=== PATIENT | female | born 1945 | race Hispanic/Latino ===

== ENCOUNTER 2018-10-06 16:55 | Inpatient (IN) | payer MEDICARE, MEDICAID ==
[2018-10-06] MEDS ORDERED: Sodium Chloride 0.9% 1,000 ML IV SCH (17:00)
[2018-10-06 17:20] LABS: BASO # 0.1 K/uL (0.0-0.2); BASO % 1.2 % (0.0-2.0); EOS % 0.2 % (0.0-4.0); HEMOGLOBIN 15.7 g/dL (12.0-16.0); LYMPH % 12.8 % (20.0-40.0); MEAN CORPUSCULAR HEMOGLOBIN 29.2 pg (27.0-31.0); MEAN CORPUSCULAR HGB CONC 33.6 g/dL (33.0-37.0); MEAN PLATELET VOLUME 8.9 fl (7.2-11.7); MONO # 0.7 K/uL (0.0-0.8); MONO % 9.4 % (0.0-10.0); NEUT # 5.7 K/uL (1.8-7.0); NEUT % 76.4 % (50.0-75.0); NRBC % 0.1 % (0.0-0.0); RBC 5.36 Mil/uL (3.80-5.20); WHITE BLOOD COUNT 7.5 K/uL (4.8-10.8)
--- NOTE | 2018-10-06 17:20 | ED PDOC ---
HPI:STROKE - Time Time: 17:15 - Historian Historian: Patient, EMS - Chief Complaint Chief Complaint: Weakness, Difficulty walking - Onset Date: 10/06/18 Onset: This morning - Timing Timing: Currently Symptomatic - Context Context: Home - Notes: Notes:: 72 year old female with a history of CVA and diabetes presents to the ED with left sided weakness beginning this morning. Patient has left sided weakness as a deficit from her last stroke. She lives by herself and was last seen normally at 10 am by family. Patient is alert, oriented and providing history. She states that the weakness began worsening this morning and she was unable to walk, but does not known the exact time of onset. EMS reports blood pressure was 201/94 on their arrival. Patient takes Plavix. PMD: Dr. Tyshawn Sosa NIHSS Stroke Scale - Date/Time Evaluation Performed Date Performed: 10/06/18 Time Performed: 17:15 When Was NIHSS Performed: Code Stroke - How Severe is the Stroke Level of Consciousness: 0=Alert LOC to Questions: 0=Both comments correct LOC to commands: 0=Obeys both correctly Best Gaze: 0=Normal Visual: 0=No visual loss Facial: 2=Partial (lower face paralysis) Motor Arm - Left: 3=No effort against gravity (falls immediately) Motor Arm - Right: 0=No drift Motor Leg - Left: 3=No effort against gravity (falls immediately) Motor Leg - Right: 3=No effort against gravity (falls immediately) Limb Ataxia: 0=Absent Sensory: 0=Normal Best Language: 0=No aphasia Dysarthia: 0=Normal articulation Extinction & Inattention (Neglect): 0=Normal, no object Score: 11 rTPA Inclusion/Exclusion - Refusal of Treatment Patient Refused Treatment: No - Inclusion Criteria for Altepase Patient is 18 years or Older: Yes The Clinical Diagnosis of Ischemic Stroke That is Causing a Potentially Disabling Neurological Deficit: Yes Time of Onset is Well Established to be Less Than 270 Minute Before Treatment Would Begin: No Risk/Benefit Discussed With Patient/Family Member Present: No Past Medical History Reviewed: Historical Data, Nursing Documentation, Vital Signs Vital Signs: Last Vital Signs Temp 99.3 F 10/06/18 16:58 Pulse 107 H 10/06/18 17:11 Resp 20 10/06/18 17:11 BP 163/96 H 10/06/18 17:11 Pulse Ox 96 10/06/18 17:11 - Medical History PMH: CVA, Diabetes - Family History Family History: States: Unknown Family Hx - Home Medications Home Medications: Ambulatory Orders Medication Instructions Recorded Atorvastatin [Lipitor] 20 mg PO DAILY 10/06/18 Clopidogrel [Plavix] 75 mg PO DAILY 10/06/18 Insulin Glargine,Hum.rec.anlog 25 units SUBCUT QPM 10/06/18 [Lantus Solostar] Lisinopril [Zestril] 20 mg PO BID 10/06/18 Meloxicam [Mobic] 7.5 mg PO DAILY 10/06/18 Memantine [Namenda] 10 mg PO BID 10/06/18 MetFORMIN [glucoPHAGE] 1,000 mg PO BID 10/06/18 amLODIPine [Norvasc] 5 mg PO BID 10/06/18 Oseltamivir Cap [Tamiflu Cap] 75 mg PO BID #8 capsule 10/08/18 - Allergies Allergies/Adverse Reactions: Allergies Allergy/AdvReac Type Severity Reaction Status Date / Time No Known Allergies Allergy Verified 10/06/18 16:58 Review of Systems ROS Statement: Except As Marked, All Systems Reviewed And Found Negative Neurological: Positive for: Weakness (left sided weakness) - Laboratory Results Result Diagrams: 10/07/18 10:55 10/07/18 10:55 - ECG O2 Sat by Pulse Oximetry: 96 (RA) Pulse Ox Interpretation: Normal - Core Measure Core Measure Indicators: Code Stroke - Critical Care Total Time (In Min): 60 Medical Decision Making Medical Decision Makin:58 Impression: stroke Initial Plan: --Blood type and screen --Head CT (Code stroke) --EKG --CMP --CBC --Hemoglobin A1C --Lipid panel --Troponin --CBC --PTT --PT --CXR --NS IV 17:[address] FINDINGS: HEMORRHAGE: No intracranial hemorrhage. BRAIN: No definite acute intracranial findings however chronic infarct at the right basal ganglia/external capsule is appreciate superiorly once again and chronic lacune at the left globus pallidus is again noted anteriorly. Otherwise, d iffuse cerebral atrophy chronic microangiopathy are reiterated and remain quite mild in severity. Posterior fossa contents are stable. Midline brain anatomy is normal and there is no mass effect. Atherosclerotic change identified the bilateral cavernous internal carotid artery segments as well as the distal bilateral vertebral arteries. VENTRICLES: Unremarkable. No hydrocephalus. CALVARIUM: Unremarkable. PARANASAL SINUSES: Unremarkable as visualized. No significant inflammatory changes. MASTOID AIR CELLS: Unremarkable as visualized. No inflammatory changes. OTHER FINDINGS: None. IMPRESSION: No acute intracranial findings although age-related degenerative changes are reiterated as well as small infarcts at the right external capsule/superior basal ganglia and left anterior basal ganglia. 17:[address] Coyle who recommended CTA, no medications for blood pressure at this time and to keep the head of the bed at 20 degrees. 17:41 --Rectal temperature is 102.1. Patient will be given Tylenol 650 mg. VBG ordered. Accession No. : [id number] Patient Name / ID : PIEDAD LOZANO / [id number] Exam Date : 10/06/2018 17:27:02 ( Approved ) Study Comment : Sex / Age : F / 72Y Creator : Kenny Nguyễn MD Dictator : Kenny Nguyễn MD Hydraulic Strainer Operator : Solar Sales Ambassador : Kenny Nguyễn MD Approver2 : Report Date : 10/06/2018 17:52:40 My Comment : Date of service: 10/06/2018 PROCEDURE: CT Angiography of the Brain and Neck. HISTORY: Worsening L sided weakness COMPARISON: None available. TECHNIQUE: CT angiography of the head and neck was performed following intravenous contrast administration. Coronal and sagittal maximum intensity projection reformatted images were generated. Contrast Dose: Visipaque 320, 190 cc Radiation dose: Total exam DLP = 420.65 mGy-cm. This CT exam was performed using one or more of the following dose reduction techniques: Automated exposure control, adjustment of the mA and/or kV according to patient size, and/or use of iterative reconstruction technique. FINDINGS: INTERNAL CEREBRAL ARTERIES: Note is made of partially calcified atherosclerosis of the bilateral cavernous internal carotid artery segments without significant stenosis. The skull base, petrous, and supraclinoid segments are bilaterally widely patent. ANTERIOR CEREBRAL ARTERIES: Unremarkable. A1 and A2 segments are widely patent. Smaller distal branches unr emarkable, as visualized. MIDDLE CEREBRAL ARTERIES: Unremarkable. M1 and M2 segments are widely patent. Perisylvian branches grossly symmetric. POSTERIOR CIRCULATION: Basilar Artery: Unremarkable. Distal Vertebral Arteries: Left dominant vertebrobasilar circulation on account of moderate hypoplasia of the distal right vertebral artery. Posterior Cerebral Arteries: Unremarkable. Posterior Inferior Cerebellar Arteries: Unremarkable. ANEURYSM/ VASCULAR MALFORMATIONS: None. OTHER FINDINGS: None. IMPRESSION: Distal right vertebral artery hypoplasia. Mildly atherosclerotic cavernous ICA segments bilaterally. CT angiography of the head and neck otherwise unremarkable. No large vessel occlusion or high-grade stenosis appreciable. 18:00 Dr. Coyle notified of CTA results and elevated temp. States symptoms probably secondary to infection. Recommends empiric Abx, permissive HTN X 24 hours, IVF, ASA 325 mg and MRI. 18:25 Patient is positive for influenza A. Since she failed the swallow screen, unable to administer Tamiflu normally. Will attempt Tamiflu suspension. -------- --------- Scribe Attestation: Documented by Radha Pena acting as a scribe for Pam Hu MD Provider Scribe Attestation: All medical record entries made by the Scribe were at my direction and personally dictated by me. I have reviewed the chart and agree that the record accurately reflects my personal performance of the history, physical exam, medical decision making, and the department course for this patient. I have also personally directed, reviewed, and agree with the discharge instructions and disposition. Disposition - Clinical Impression Clinical Impression: Influenza, SIRS (systemic inflammatory response syndrome) - Patient ED Disposition Is Patient to be Admitted: Yes - Disposition Disposition Time: 18:25 Condition: GUARDED - Pt Status Changed To: Hospital Disposition Of: Inpatient - Admit Certification Admit to Inpatient:: After my assessment, the patient will require hospitalization for at least two midnights. This is because of the severity of symptoms shown, intensity of services needed, and/or the medical risk in this patient being treated as an outpatient. - POA Present On Arrival: None
[2018-10-06] MEDS ORDERED: Iodixanol 320 MG/ML 100 ML BOTTLE IV ONE (17:23)
[2018-10-06] MEDS ORDERED: Sodium Chloride 0.9% 50 ML IV ONE (17:23)
--- NOTE | 2018-10-06 17:24 | CT ---
Date of service: 10/06/2018 PROCEDURE: CT HEAD WITHOUT CONTRAST. HISTORY: code stroke COMPARISON: None available. TECHNIQUE: Axial computed tomography images were obtained through the head/brain without intravenous contrast. Radiation dose: Total exam DLP = 782.77 mGy-cm. This CT exam was performed using one or more of the following dose reduction techniques: Automated exposure control, adjustment of the mA and/or kV according to patient size, and/or use of iterative reconstruction technique. FINDINGS: HEMORRHAGE: No intracranial hemorrhage. BRAIN: No definite acute intracranial findings however chronic infarct at the right basal ganglia/external capsule is appreciate superiorly once again and chronic lacune at the left globus pallidus is again noted anteriorly. Otherwise, diffuse cerebral atrophy chronic microangiopathy are reiterated and remain quite mild in severity. Posterior fossa contents are stable. Midline brain anatomy is normal and there is no mass effect. Atherosclerotic change identified the bilateral cavernous internal carotid artery segments as well as the distal bilateral vertebral arteries. VENTRICLES: Unremarkable. No hydrocephalus. CALVARIUM: Unremarkable. PARANASAL SINUSES: Unremarkable as visualized. No significant inflammatory changes. MASTOID AIR CELLS: Unremarkable as visualized. No inflammatory changes. OTHER FINDINGS: None. IMPRESSION: No acute intracranial findings although age-related degenerative changes are reiterated as well as small infarcts at the right external capsule/superior basal ganglia and left anterior basal ganglia. Findings discussed with Dr. Hu with written down and read back verification 10/06/2018 5:13 p.m..
[2018-10-06 17:25] LABS: INR 1.1; PROTHROMBIN TIME 12.7 Seconds (9.8-13.1)
--- NOTE | 2018-10-06 17:26 | ED PDOC ---
HPI: Neurologic - General Time Seen by Provider: 10/06/18 16:56 Chief Complaint (Nursing): Weakness/Neurological Deficit Chief Complaint (Provider): Weakness/Neurological Deficit Source: patient, EMS - History of Present Illness Timing/Duration: 4-6 hours Associated Symptoms: trouble walking, weakness Allergies/Adverse Reactions: Allergies No Known Allergies Allergy (Verified 10/06/18 16:58) Additional Complaint(s): 72 year old female with a history of CVA and diabetes presents to the ED with left sided weakness beginning this morning. Patient has left sided weakness as a deficit from her last stroke. She lives by herself and was last seen normally at 10 am by family. Patient is alert, oriented and providing history. She states that the weakness began worsening this morning and she was unable to walk, but does not known the exact time of onset. Patient takes Plavix. PMD: Dr. Tyshawn Sosa Past Medical History Reviewed: Historical Data, Nursing Documentation, Vital Signs Vital Signs: Last Vital Signs Temp 99.3 F 10/06/18 16:58 Pulse 107 H 10/06/18 17:11 Resp 20 10/06/18 17:11 BP 163/96 H 10/06/18 17:11 Pulse Ox 96 10/06/18 17:11 - Medical History PMH: CVA (left sided weakness as a deficit), Diabetes - Family History Family History: States: Unknown Family Hx - Allergies Allergies/Adverse Reactions: Allergies Allergy/AdvReac Type Severity Reaction Status Date / Time No Known Allergies Allergy Verified 10/06/18 16:58 Review of Systems ROS Statement: Except As Marked, All Systems Reviewed And Found Negative Neurological: Positive for: Weakness (left sided weakness) - ECG O2 Sat by Pulse Oximetry: 96 Disposition - Disposition Forms: [employer] (Malagasy)
[2018-10-06 17:27] LABS: PARTIAL THROMBOPLASTIN TIME 31.5 Seconds (25.6-37.1)
[2018-10-06 17:30] LABS: ALB/GLOB RATIO 1.2 (1.0-2.1); ALBUMIN 4.1 g/dL (3.5-5.0); ALT/SGPT 20 U/L (9-52); AST/SGOT 19 U/L (14-36); BLOOD UREA NITROGEN 12 mg/dl (7-17); CALCIUM 9.4 mg/dL (8.4-10.2); GFR NON-AFRICAN AMERICAN > 60; HDL CHOLESTEROL 46 MG/DL (30-70)
[2018-10-06 17:41] LABS: LDL CHOLESTEROL 91 mg/dL (0-129)
--- NOTE | 2018-10-06 17:56 | CT ---
Date of service: 10/06/2018 PROCEDURE: CT Angiography of the Brain and Neck. HISTORY: Worsening L sided weakness COMPARISON: None available. TECHNIQUE: CT angiography of the head and neck was performed following intravenous contrast administration. Coronal and sagittal maximum intensity projection reformatted images were generated. Contrast Dose: Visipaque 320, 190 cc Radiation dose: Total exam DLP = 420.65 mGy-cm. This CT exam was performed using one or more of the following dose reduction techniques: Automated exposure control, adjustment of the mA and/or kV according to patient size, and/or use of iterative reconstruction technique. FINDINGS: INTERNAL CEREBRAL ARTERIES: Note is made of partially calcified atherosclerosis of the bilateral cavernous internal carotid artery segments without significant stenosis. The skull base, petrous, and supraclinoid segments are bilaterally widely patent. ANTERIOR CEREBRAL ARTERIES: Unremarkable. A1 and A2 segments are widely patent. Smaller distal branches unremarkable, as visualized. MIDDLE CEREBRAL ARTERIES: Unremarkable. M1 and M2 segments are widely patent. Perisylvian branches grossly symmetric. POSTERIOR CIRCULATION: Basilar Artery: Unremarkable. Distal Vertebral Arteries: Left dominant vertebrobasilar circulation on account of moderate hypoplasia of the distal right vertebral artery. Posterior Cerebral Arteries: Unremarkable. Posterior Inferior Cerebellar Arteries: Unremarkable. ANEURYSM/ VASCULAR MALFORMATIONS: None. OTHER FINDINGS: None. IMPRESSION: Distal right vertebral artery hypoplasia. Mildly atherosclerotic cavernous ICA segments bilaterally. CT angiography of the head and neck otherwise unremarkable. No large vessel occlusion or high-grade stenosis appreciable.
[2018-10-06 17:58] LABS: VENOUS BLOOD GAS BASE EXCESS 2.9 mmol/L (0.0-2.0); VENOUS BLOOD GAS PCO2 43 mmHg (40-60); VENOUS BLOOD GAS PO2 42 mm/Hg (30-55); VENOUS BLOOD PH 7.42 (7.32-7.43)
[2018-10-06 18:21] LABS: SQUAMOUS EPITHIAL 1 /hpf (0-5); URINE BACTERIA RARE (<OCC); URINE BILIRUBIN NEGATIVE (NEGATIVE); URINE BLOOD NEGATIVE (NEGATIVE); URINE CLARITY CLEAR (Clear); URINE COLOR YELLOW (YELLOW); URINE GLUCOSE (UA) 150 mg/dL (NEGATIVE); URINE LEUKOCYTE ESTERASE NEG Leu/uL (Negative); URINE PROTEIN 30 mg/dL (NEGATIVE); URINE UROBILINOGEN 0.2-1.0 mg/dL (0.2-1.0)
[2018-10-06] MEDS ORDERED: Oseltamivir 6 MG/ML PO STA (18:33)
[2018-10-06] MEDS: Dextrose 5%/Lactated Ringer's 1,000 ML IV SCH (21:50)
[2018-10-07] MEDS ORDERED: Chlorhexidine Gluconate 1 APPL/PKT TP ONE (00:30)
--- NOTE | 2018-10-07 07:27 | CARD ---
APPROVED REPORT Date of service: 10/06/2018 EKG Measurement Heart [id number] <Conclusion> Sinus tachycardia with premature atrial complexes Otherwise normal ECG
[2018-10-07 11:02] LABS: HEMOGLOBIN 13.3 g/dL (12.0-16.0); MEAN CORPUSCULAR HEMOGLOBIN 29.3 pg (27.0-31.0); MEAN CORPUSCULAR HGB CONC 32.9 g/dL (33.0-37.0); RBC 4.56 Mil/uL (3.80-5.20); RED CELL DISTRIBUTION WIDTH 13.8 % (11.5-14.5); WHITE BLOOD COUNT 3.6 K/uL (4.8-10.8)
[2018-10-07 11:17] LABS: ALB/GLOB RATIO 1.1 (1.0-2.1); ALBUMIN 3.3 g/dL (3.5-5.0); ALT/SGPT 22 U/L (9-52); AST/SGOT 21 U/L (14-36); BLOOD UREA NITROGEN 13 mg/dl (7-17); CALCIUM 8.3 mg/dL (8.4-10.2); GFR NON-AFRICAN AMERICAN > 60
--- NOTE | 2018-10-07 12:08 | RAD ---
Date of service: 10/06/2018 HISTORY: Code Stroke COMPARISON: 07/19/2015. FINDINGS: LUNGS: The lungs are well inflated and clear. PLEURA: No pleural effusions or pneumothorax. CARDIOVASCULAR: The heart is normal in size. There are aortic atherosclerotic calcifications present. OSSEOUS STRUCTURES: Within normal limits for the patient's age. VISUALIZED UPPER ABDOMEN: Normal. OTHER FINDINGS: None. IMPRESSION: No active pulmonary disease.
[2018-10-07] MEDS: Pantoprazole 40 mg EC Tab PO SCH (12:45)
[2018-10-07 17:07] VITALS: BMI 29.2
[2018-10-07] MEDS: Dextrose 5%/Lactated Ringer's 1,000 ML IV SCH (18:03)
[2018-10-07] MEDS: Enoxaparin 40 mg Syringe SC SCH (18:07)
--- NOTE | 2018-10-07 21:14 | CP.PCM.CON ---
History of Present Illness - History of Present Illness History of Present Illness: Neurology consult called for Alisa Liriano, a 72 year old woman who had a spell of left sided weakness, that is a chronic issue from her last stroke. As per chart and Dr. Hu: She had worsening left sided weakness superimposed on old weakness from right sided stroke. She was found to have the flu and was not considered a TPA candidate. ROS: headache, nausea. PMH/PSH FH/SH All: Past Patient History - Past Medical History & Family History Past Medical History?: Yes - Past Social History Smoking Status: Never Smoked - CARDIAC Hx Cardiac Disorders: Yes Hx Hypercholesterolemia: Yes Hx Hypertension: Yes - PULMONARY Hx Respiratory Disorders: No - NEUROLOGICAL Hx Neurological Disorder: Yes HX Cerebrovascular Accident: Yes (left sided weakness) - HEENT Hx HEENT Problems: Yes Hx Difficulty Chewing: Yes (dentures) - RENAL Hx Chronic Kidney Disease: No - ENDOCRINE/METABOLIC Hx Endocrine Disorders: Yes Hx Diabetes Mellitus Type 2: Yes - HEMATOLOGICAL/ONCOLOGICAL Hx Blood Disorders: No Hx AIDS: No Hx Human Immunodeficiency Virus (HIV): No - INTEGUMENTARY Hx Dermatological Problems: No - MUSCULOSKELETAL/RHEUMATOLOGICAL Hx Musculoskeletal Disorders: No Hx Falls: No - GASTROINTESTINAL Hx Gastrointestinal Disorders: No - GENITOURINARY/GYNECOLOGICAL Hx Genitourinary Disorders: Yes Hx Incontinence: Yes - PSYCHIATRIC Hx Psychophysiologic Disorder: No Hx Substance Use: No - SURGICAL HISTORY Hx Surgeries: No - ANESTHESIA Hx Anesthesia: No Hx Anesthesia Reactions: No Meds Allergies/Adverse Reactions: Allergies Allergy/AdvReac Type Severity Reaction Status Date / Time No Known Allergies Allergy Verified 10/06/18 16:58 - Medications Medications: Current Medications Acetaminophen (Tylenol 650 Mg Supp) 650 mg AK ONCE PRN PRN Reason: Fever >100.4 F Last Admin: 10/07/18 00:33 Dose: 650 mg Acetaminophen (Tylenol 650 Mg Supp) 650 mg AK Q4 PRN PRN Reason: Fever >100.4 F Acetaminophen (Tylenol 325mg Tab) 650 mg PO Q4 PRN PRN Reason: Fever >100.4 F Last Admin: 10/07/18 12:44 Dose: 650 mg Amlodipine Besylate (Norvasc) 5 mg PO BID [facility] Last Admin: 10/07/18 18:08 Dose: 5 mg Atorvastatin Calcium (Lipitor) 20 mg PO DAILY [facility] Last Admin: 10/07/18 18:06 Dose: 20 mg Clopidogrel Bisulfate (Plavix) 75 mg PO DAILY [facility] Last Admin: 10/07/18 12:44 Dose: 75 mg Enoxaparin Sodium (Lovenox) 40 mg SC DAILY [facility]; Protocol Last Admin: 10/07/18 18:07 Dose: 40 mg Ceftriaxone Sodium 1 gm/ (Sodium Chloride) 100 mls @ 100 mls/hr IVPB DAILY [facility]; Protocol Last Admin: 10/07/18 18:08 Dose: 100 mls/hr Lisinopril (Zestril) 20 mg PO BID [facility] Last Admin: 10/07/18 18:10 Dose: 20 mg Memantine (Namenda) 10 mg PO BID [facility] Last Admin: 10/07/18 18:07 Dose: 10 mg Metformin HCl (Glucophage) 1,000 mg PO BID [facility] Last Admin: 10/07/18 18:06 Dose: 1,000 mg Oseltamivir Phosphate (Tamiflu Cap) 75 mg PO BID [facility]; Protocol Last Admin: 10/07/18 18:10 Dose: 75 mg Pantoprazole Sodium (Protonix Ec Tab) 40 mg PO DAILY [facility] Last Admin: 10/07/18 12:45 Dose: 40 mg Results - Vital Signs Recent Vital Signs: Last Vital Signs Temp 98.8 F 10/07/18 20:11 Pulse 63 10/07/18 20:11 Resp 17 10/07/18 20:11 BP 150/78 10/07/18 20:11 Pulse Ox 96 10/07/18 20:11 - Labs Result Diagrams: 10/07/18 10:55 10/07/18 10:55 Labs: Laboratory Results - last 24 hr 10/07/18 10/07/18 10/07/18 05:28 10:53 10:55 WBC RBC Hgb Hct MCV MCH MCHC RDW Plt Count Sodium Potassium Chloride Carbon Dioxide Anion Gap BUN Creatinine Est GFR ( Amer) Est GFR (Non-Af Amer) POC Glucose (mg/dL) 217 H 209 H Random Glucose Calcium Phosphorus Magnesium Total Bilirubin AST ALT Alkaline Phosphatase Total Protein Albumin Globulin Albumin/Globulin Ratio Blood Type Confirm O POSITIVE 10/07/18 10/07/18 10/07/18 10:55 10:55 15:40 WBC 3.6 L D RBC 4.56 Hgb 13.3 D Hct 40.5 MCV 89.0 D MCH 29.3 MCHC 32.9 L RDW 13.8 Plt Count 184 Sodium 136 Potassium 3.8 Chloride 101 Carbon Dioxide 29 Anion Gap 10 BUN 13 Creatinine 0.8 Est GFR ( Amer) > 60 Est GFR (Non-Af Amer) > 60 POC Glucose (mg/dL) 239 H Random Glucose 225 H Calcium 8.3 L Phosphorus 3.6 Magnesium 1.6 Total Bilirubin 0.2 AST 21 ALT 22 Alkaline Phosphatase 102 Total Protein 6.2 L Albumin 3.3 L Globulin 2.9 Albumin/Globulin Ratio 1.1 Blood Type Confirm
[2018-10-08 05:26] VITALS: RESP 18
[2018-10-08] MEDS: Enoxaparin 40 mg Syringe SC SCH (09:14)
[2018-10-08] MEDS: Pantoprazole 40 mg EC Tab PO SCH (09:16)
--- NOTE | 2018-10-08 11:41 | MRI ---
Date of service: 10/07/2018 PROCEDURE: MRI BRAIN WITHOUT CONTRAST HISTORY: Acute on chronic left-sided weakness COMPARISON: Comparison made with prior CT scan and CTA of the brain both dated 10/06/19 19.. TECHNIQUE: Multiplanar, multisequence MR images of the brain were obtained without intravenous contrast enhancement. FINDINGS: HEMORRHAGE: No acute parenchymal, subarachnoid or extra-axial hemorrhage. There is however a small focal area of hemosiderin deposition right posterior superior basal ganglia/coronal radiata junction. DWI: No evidence of an acute or early subacute infarction seen on diffusion imaging. BRAIN PARENCHYMA: Mild diffuse/confluent chronic prolonged T2 signal changes seen extending peripherally into the deep white matter both cerebral hemispheres.. Findings most likely represent chronic sequela of small vessel disease. Multiple more discrete focal areas of increased T2 signal also seen scattered about the basal nuclei as well as deep and subcortical white matter and to a lesser degree brainstem. Note however that there is 1 discrete and prominent rounded lesion in the right posterior superior periventricular white matter at the level of the posterior frontoparietal watershed zone that mom probably represents chronic ischemic focus as well however differential diagnosis would also include sequela atypical presentation of a post infectious/inflammatory etiologies however possibility of atypical presentation of a demyelinating disease process not excluded.. Mild mild generalized volume loss. VENTRICLES: No obstructive hydrocephalus. CRANIUM: No acute calvarial abnormalities are identified.. ORBITS: Orbits and contents grossly unremarkable... PARANASAL SINUSES/MASTOIDS: Minor mucosal thickening seen in the ethmoid air complex extension superiorly into the inferior aspect of the frontal sinus more so on the left side. There also appears to be some minimal mucosal thickening floor left maxillary antrum. VASCULAR SYSTEM: Visualized major vascular flow voids at skull base patent.. OTHER FINDINGS: None. IMPRESSION: No evidence of acute intracranial hemorrhage however there is a small focal area of hemosiderin deposition in the right posterior superior basal ganglia/coronal radiata junction. No evidence of acute infarct. There are chronic appearing white matter, basal nuclei and brainstem changes likely representing chronic sequela of small vessel disease. One discrete prominent rounded lesion in the right posterior periventricular white matter also noted which may represent an old infarct as well however see above discussion for differential diagnostic considerations.
[2018-10-08 11:43] VITALS: BP 146/81; PULSE 76; TEMP 98.8
--- NOTE | 2018-10-08 11:49 | CP.PCM.PN ---
Subjective - Date & Time of Evaluation Date of Evaluation: 10/08/18 Time of Evaluation: 11:30 - Subjective Subjective: Neuro Follow-Up Note: Mrs. Liriano was evaluated this morning in bed. Family present at bedside. Pt states that she feels better today; denies weakness or fatigue. + mild generalized body aches. Denies h/a, dizziness, visual changes, chest pain, palpitations, sob, abd pain, n/v/d. Objective - Vital Signs/Intake and Output Vital Signs (last 24 hours): Temp Pulse Resp BP Pulse Ox 98.8 F 76 18 146/81 93 L 10/08/18 11:42 10/08/18 11:42 10/08/18 11:42 10/08/18 11:42 10/08/18 11:42 - Medications Medications: Current Medications Acetaminophen (Tylenol 650 Mg Supp) 650 mg HI ONCE PRN PRN Reason: Fever >100.4 F Last Admin: 10/07/18 00:33 Dose: 650 mg Acetaminophen (Tylenol 650 Mg Supp) 650 mg HI Q4 PRN PRN Reason: Fever >100.4 F Acetaminophen (Tylenol 325mg Tab) 650 mg PO Q4 PRN PRN Reason: Fever >100.4 F Last Admin: 10/07/18 12:44 Dose: 650 mg Amlodipine Besylate (Norvasc) 5 mg PO BID [facility] Last Admin: 10/08/18 09:15 Dose: 5 mg Atorvastatin Calcium (Lipitor) 20 mg PO DAILY [facility] Last Admin: 10/08/18 09:14 Dose: 20 mg Clopidogrel Bisulfate (Plavix) 75 mg PO DAILY [facility] Last Admin: 10/08/18 09:16 Dose: 75 mg Enoxaparin Sodium (Lovenox) 40 mg SC DAILY [facility]; Protocol Last Admin: 10/08/18 09:14 Dose: 40 mg Ceftriaxone Sodium 1 gm/ (Sodium Chloride) 100 mls @ 100 mls/hr IVPB DAILY [facility]; Protocol Last Admin: 10/08/18 09:16 Dose: 100 mls/hr Lisinopril (Zestril) 20 mg PO BID [facility] Last Admin: 10/08/18 09:17 Dose: 20 mg Memantine (Namenda) 10 mg PO BID [facility] Last Admin: 10/08/18 09:15 Dose: 10 mg Metformin HCl (Glucophage) 1,000 mg PO BID [facility] Last Admin: 10/08/18 09:14 Dose: 1,000 mg Oseltamivir Phosphate (Tamiflu Cap) 75 mg PO BID [facility]; Protocol Last Admin: 10/08/18 09:17 Dose: 75 mg Pantoprazole Sodium (Protonix Ec Tab) 40 mg PO DAILY [facility] Last Admin: 10/08/18 09:16 Dose: 40 mg - Labs Labs: 10/07/18 10:55 10/07/18 10:55 PT 12.7 Seconds (9.8-13.1) 10/06/18 17:15 INR 1.1 10/06/18 17:15 APTT 31.5 Seconds (25.6-37.1) 10/06/18 17:15 - Constitutional Appears: Well, Non-toxic, No Acute Distress - Head Exam Head Exam: ATRAUMATIC, NORMAL INSPECTION, NORMOCEPHALIC - Eye Exam Eye Exam: EOMI, Normal appearance, PERRL Pupil Exam: NORMAL ACCOMODATION, PERRL - ENT Exam ENT Exam: Mucous Membranes Moist - Neck Exam Neck Exam: Full ROM, Normal Inspection - Respiratory Exam Respiratory Exam: NORMAL BREATHING PATTERN - GI/Abdominal Exam GI & Abdominal Exam: Soft - Extremities Exam Extremities Exam: absent: Calf Tenderness, Full ROM, Pedal Edema Additional comments: 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 - Back Exam Back Exam: Full ROM - Neurological Exam Neurological Exam: Alert, Awake, CN II-XII Intact, Oriented x3, Reflexes Normal Neuro motor strength exam: Left Upper Extremity: 3, Right Upper Extremity: 4, Left Lower Extremity: 3, Right Lower Extremity: 4 Additional comments: speech clear, fluid no facial asymmetry + left sided residual weakness from old cva---at baseline today FROM RUE and RLE sensation intact b/l no tremors - Psychiatric Exam Psychiatric exam: Normal Affect, Normal Mood - Skin Skin Exam: Normal Color Assessment and Plan (1) Weakness Assessment & Plan: -Likely 2/2 influenza. Mrs. Liriano is at her baseline today. -Continue treatment and management of influenza per primary. -CT and CTA reviewed -Pending Brain MRI results---if negative for acute infarct and acute hemorrhage, pt may be d/c home. -Continue Plavix and statin to prevent secondary stroke. -Notify neuro is MRI is abnormal. If not, reconsult prn. Thank you for allowing us to participate in this pt's care. Case discussed with Dr. Aguirre Status: Acute
[2018-10-09 17:09] VITALS: O2SAT 96
--- NOTE | 2018-10-13 22:46 | CP.PCM.HP ---
History of Present Illness - History of Present Illness History of Present Illness: This is a [age] y/o female with hx of CVA and leg weakness form CVA was noticed to have become more weak and weakness seem to have worsened . She apparently did not feel well in the last few days Had no fever but had severe body malaise. She was brought to ER were a code stroke was called. She was noted to have " dysphagia " prob secondary to gen debility. She was noted to have Infuenza. Has a hx of CVA HTN DM 2 hyperlipidemia Present on Admission - Present on Admission Any Indicators Present on Admission: No History of DVT/PE: No History of Uncontrolled Diabetes: No Urinary Catheter: No Decubitus Ulcer Present: No Past Patient History - Past Medical History & Family History Past Medical History?: Yes - Past Social History Smoking Status: Never Smoked - CARDIAC Hx Cardiac Disorders: Yes Hx Hypercholesterolemia: Yes Hx Hypertension: Yes - PULMONARY Hx Respiratory Disorders: No - NEUROLOGICAL Hx Neurological Disorder: Yes HX Cerebrovascular Accident: Yes (left sided weakness) - HEENT Hx HEENT Problems: Yes Hx Difficulty Chewing: Yes (dentures) - RENAL Hx Chronic Kidney Disease: No - ENDOCRINE/METABOLIC Hx Endocrine Disorders: Yes Hx Diabetes Mellitus Type 2: Yes - HEMATOLOGICAL/ONCOLOGICAL Hx Blood Disorders: No Hx AIDS: No Hx Human Immunodeficiency Virus (HIV): No - INTEGUMENTARY Hx Dermatological Problems: No - MUSCULOSKELETAL/RHEUMATOLOGICAL Hx Musculoskeletal Disorders: No Hx Falls: No - GASTROINTESTINAL Hx Gastrointestinal Disorders: No - GENITOURINARY/GYNECOLOGICAL Hx Genitourinary Disorders: Yes Hx Incontinence: Yes - PSYCHIATRIC Hx Psychophysiologic Disorder: No Hx Substance Use: No - SURGICAL HISTORY Hx Surgeries: No - ANESTHESIA Hx Anesthesia: No Hx Anesthesia Reactions: No Meds Home Medications: Home Medication List Medication Instructions Recorded Confirmed Type Oseltamivir Cap [Tamiflu Cap] 75 mg PO BID #8 capsule 10/08/18 Rx Allergies/Adverse Reactions: Allergies Allergy/AdvReac Type Severity Reaction Status Date / Time No Known Allergies Allergy Verified 10/06/18 16:58 Physical Exam - Head Exam Head Exam: NORMAL INSPECTION - Eye Exam Eye Exam: Normal appearance - Respiratory Exam Respiratory Exam: Clear to Auscultation Bilateral - Cardiovascular Exam Cardiovascular Exam: REGULAR RHYTHM - GI/Abdominal Exam GI & Abdominal Exam: Normal Bowel Sounds - Neurological Exam Neurological exam: CN II-XII Intact, Normal Gait - Skin Skin Exam: Dry Results - Vital Signs Recent Vital Signs: Last Vital Signs Temp 98.8 F 10/08/18 11:42 Pulse 76 10/08/18 11:42 Resp 18 10/08/18 11:42 BP 146/81 10/08/18 11:42 Pulse Ox 96 10/09/18 17:09 - Labs Result Diagrams: 10/07/18 10:55 10/07/18 10:55 Assessment & Plan (1) SIRS (systemic inflammatory response syndrome) Status: Acute (2) Influenza Status: Acute (3) Hypertension Status: Acute (4) Diabetes mellitus type 2 in nonobese Status: Acute (5) Debility Status: Acute - Assessment and Plan (Free Text) Plan: hydrate repat dysphagia eval advance diet if dysphagia eval is unremarkabvle. start PT
--- NOTE | 2018-10-13 22:53 | CP.PCM.DIS ---
Provider - Provider Date of Admission: 10/06/18 18:25 Attending physician: Art Chen MD Consults: 10/06/18 20:40 Neurology Consult Stat Comment: Consulting Provider: Jose Angel Coyle Consulting Physician: Jose Angel Coyle Reason for Consult: Possible stroke 10/07/18 03:01 Pastoral Care Referral Routine Comment: Physician Instructions: Reason For Exam: New admission Social Work Referral Routine Comment: Lives alone Physician Instructions: Reason For Exam: Lives alone Time Spent in preparation of Discharge (in minutes): 30 Diagnosis - Discharge Diagnosis (1) SIRS (systemic inflammatory response syndrome) Status: Acute (2) Influenza Status: Acute (3) Hypertension Status: Acute (4) Diabetes mellitus type 2 in nonobese Status: Acute (5) Debility Status: Acute Hospital Course - Lab Results Lab Results: Micro Results 10/07/18 10:55 Blood Blood Culture - Final NO GROWTH AFTER 5 DAYS 10/07/18 10:55 Blood Gram Stain - Final TEST NOT PERFORMED 10/06/18 18:10 Blood-Venous Blood Culture - Final NO GROWTH AFTER 5 DAYS 10/06/18 18:10 Blood-Venous Gram Stain - Final TEST NOT PERFORMED 10/06/18 17:55 Blood-Venous Blood Culture - Final NO GROWTH AFTER 5 DAYS 10/06/18 17:55 Blood-Venous Gram Stain - Final TEST NOT PERFORMED 10/06/18 18:09 Urine,Catheterized Urine Culture - Final No Growth (<1,000 CFU/ML) Most Recent Lab Values WBC 3.6 K/uL (4.8-10.8) L D 10/07/18 10:55 RBC 4.56 Mil/uL (3.80-5.20) 10/07/18 10:55 Hgb 13.3 g/dL (12.0-16.0) D 10/07/18 10:55 Hct 40.5 % (34.0-47.0) 10/07/18 10:55 MCV 89.0 fl (81.0-99.0) D 10/07/18 10:55 MCH 29.3 pg (27.0-31.0) 10/07/18 10:55 MCHC 32.9 g/dL (33.0-37.0) L 10/07/18 10:55 RDW 13.8 % (11.5-14.5) 10/07/18 10:55 Plt Count 184 K/uL (130-400) 10/07/18 10:55 MPV 8.9 fl (7.2-11.7) 10/06/18 17:15 Neut % (Auto) 76.4 % (50.0-75.0) H 10/06/18 17:15 Lymph % (Auto) 12.8 % (20.0-40.0) L 10/06/18 17:15 [place] % (Auto) 9.4 % (0.0-10.0) 10/06/18 17:15 Eos % (Auto) 0.2 % (0.0-4.0) 10/06/18 17:15 Baso % (Auto) 1.2 % (0.0-2.0) 10/06/18 17:15 Neut # (Auto) 5.7 K/uL (1.8-7.0) 10/06/18 17:15 Lymph # (Auto) 1.0 K/uL (1.0-4.3) 10/06/18 17:15 [place] # (Auto) 0.7 K/uL (0.0-0.8) 10/06/18 17:15 Eos # (Auto) 0.0 K/uL (0.0-0.7) 10/06/18 17:15 Baso # (Auto) 0.1 K/uL (0.0-0.2) 10/06/18 17:15 PT 12.7 Seconds (9.8-13.1) 10/06/18 17:15 INR 1.1 10/06/18 17:15 APTT 31.5 Seconds (25.6-37.1) 10/06/18 17:15 pO2 42 mm/Hg (30-55) 10/06/18 17:53 VBG pH 7.42 (7.32-7.43) 10/06/18 17:53 VBG pCO2 43 mmHg (40-60) 10/06/18 17:53 VBG HCO3 26.7 mmol/L 10/06/18 17:53 VBG Total CO2 29.2 mmol/L (22-28) H 10/06/18 17:53 VBG O2 Sat (Calc) 83.4 % (40-65) H 10/06/18 17:53 VBG Base Excess 2.9 mmol/L (0.0-2.0) H 10/06/18 17:53 VBG Potassium 3.7 mmol/L (3.6-5.2) 10/06/18 17:53 Sodium 131.0 mmol/L (132-148) L 10/06/18 17:53 Chloride 101.0 mmol/L (98-107) 10/06/18 17:53 Glucose 178 mg/dL (65-105) H 10/06/18 17:53 Lactate 1.8 mmol/L (0.7-2.1) 10/06/18 17:53 FiO2 21.0 % 10/06/18 17:53 Sodium 136 mmol/l (132-148) 10/07/18 10:55 Potassium 3.8 MMOL/L (3.6-5.0) 10/07/18 10:55 Chloride 101 mmol/L (98-107) 10/07/18 10:55 Carbon Dioxide 29 mmol/L (22-30) 10/07/18 10:55 Anion Gap 10 (10-20) 10/07/18 10:55 BUN 13 mg/dl (7-17) 10/07/18 10:55 Creatinine 0.8 mg/dl (0.7-1.2) 10/07/18 10:55 Est GFR ( Amer) > 60 10/07/18 10:55 Est GFR (Non-Af Amer) > 60 10/07/18 10:55 POC Glucose (mg/dL) 241 mg/dL (65-110) H 10/08/18 10:39 Random Glucose 225 mg/dL (65-105) H 10/07/18 10:55 Hemoglobin A1c 9.1 % (4.2-6.5) H 10/06/18 18:25 Calcium 8.3 mg/dL (8.4-10.2) L 10/07/18 10:55 Phosphorus 3.6 mg/dl (2.5-4.5) 10/07/18 10:55 Magnesium 1.6 MG/DL (1.6-2.3) 10/07/18 10:55 Total Bilirubin 0.2 mg/dl (0.2-1.3) 10/07/18 10:55 AST 21 U/L (14-36) 10/07/18 10:55 ALT 22 U/L (9-52) 10/07/18 10:55 Alkaline Phosphatase 102 U/L (38-126) 10/07/18 10:55 Troponin I 0.0120 ng/mL (0.00-0.120) 10/06/18 17:15 Total Protein 6.2 G/DL (6.3-8.2) L 10/07/18 10:55 Albumin 3.3 g/dL (3.5-5.0) L 10/07/18 10:55 Globulin 2.9 gm/dL (2.2-3.9) 10/07/18 10:55 Albumin/Globulin Ratio 1.1 (1.0-2.1) 10/07/18 10:55 Triglycerides 135 mg/DL (0-149) D 10/06/18 17:15 Cholesterol 156 mg/dL (0-199) 10/06/18 17:15 LDL Cholesterol Direct 91 mg/dL (0-129) 10/06/18 17:15 HDL Cholesterol 46 MG/DL (30-70) 10/06/18 17:15 Venous Blood Potassium 3.7 mmol/L (3.6-5.2) 10/06/18 17:53 Urine Color Yellow (YELLOW) 10/06/18 18:09 Urine Clarity Clear (Clear) 10/06/18 18:09 Urine pH 5.0 (5.0-8.0) 10/06/18 18:09 Ur Specific [place] > 1.060 (1.003-1.030) H 10/06/18 18:09 Urine Protein 30 mg/dL (NEGATIVE) 10/06/18 18:09 Urine Glucose (UA) 150 mg/dL (NEGATIVE) 10/06/18 18:09 Urine Ketones Trace mg/dL (NEGATIVE) 10/06/18 18:09 Urine Blood Negative (NEGATIVE) 10/06/18 18:09 Urine Nitrate Negative (NEGATIVE) 10/06/18 18:09 Urine Bilirubin Negative (NEGATIVE) 10/06/18 18:09 Urine Urobilinogen 0.2-1.0 mg/dL (0.2-1.0) 10/06/18 18:09 Ur Leukocyte Esterase Neg [place]/uL (Negative) 01/13/19 18:09 Urine RBC (Auto) 3 /hpf (0-3) 10/06/18 18:09 Urine Microscopic WBC 1 /hpf (0-5) 10/06/18 18:09 Ur Squamous Epith Cells 1 /hpf (0-5) 10/06/18 18:09 Urine Bacteria Rare (<OCC) 10/06/18 18:09 Influenza Typ A,B (EIA) Pos for influenza a (NEGATIVE) H 10/06/18 17:55 Blood Type O POSITIVE 10/06/18 17:15 Blood Type Confirm O POSITIVE 10/07/18 10:55 Antibody Screen Negative 10/06/18 17:15 BBK History Checked No verified bt 10/06/18 17:15 - Hospital Course Hospital Course: This is a 74 y/o female who presented to ER with gen weakness and debility and possible dyspahagia. She had a code strioke at the ER but she was also noted to havve positive for Influenxza. A repeat dysphagia eval was unremarkable She rem ained well and responded very well to hydration and analgesics. She was starte don diet and was advanc She was started on Tamiflu and did very well She was discharged in stable condition on the 2nd day of hospitalization. Discharge Exam - Head Exam Head Exam: NORMAL INSPECTION - Eye Exam Eye Exam: Normal appearance - Respiratory Exam Respiratory Exam: Clear to PA & Lateral - Cardiovascular Exam Cardiovascular Exam: REGULAR RHYTHM - GI/Abdominal Exam GI & Abdominal Exam: Normal Bowel Sounds - Neurological Exam Neurological exam: CN II-XII Intact - Psychiatric Exam Psychiatric exam: Normal Mood Discharge Plan - Discharge Medications Prescriptions: Oseltamivir Cap [Tamiflu Cap] 75 mg PO BID #8 capsule - Follow Up Plan Condition: GUARDED Disposition: HOME/ ROUTINE Instructions: Flu, Adult (DC), Generalized Weakness (DC) Additional Instructions: por favor celena wilder con el doctor zonia en 1 semana Referrals: Tyshawn Sosa MD [Family Provider] - Art Chen MD [Staff Provider] - Edson Aguirre MD [Medical Doctor] -
--- NOTE | 2018-10-29 12:18 | PQF ---
PROVIDER RESPONSE TEXT: SIRS likely secondary to flu (+ influenza A on admission) REVIEWER QUERY TEXT: SIRS Underlying Cause Systemic Inflammatory Response Syndrome (SIRS) is documented in the Medical Record. Please specify th e underlying cause (includes suspected or probable) Such as: -- Infectious cause / process/ PLEASE SPECIFY THE CAUSE? - With organ dysfunction -- Non-infectious cause / process/ PLEASE SPECIFY THE CAUSE? - Without organ dysfunction - With organ dysfunction -- Other, please specify The patient's Clinical Indicators include: XXXX Query created by: Amie Lancaster on 10/21/2018 2:16 PM Electronically signed by: Art Chen MD 10/29/2018 12:15 PM
== END 2018-10-08 14:14 | disposition home or self-care (01) | DRG 194 ==
LOC: H.ER 16:55 → H.ERHOLD 18:25 → H.TEL 22:58
PROVIDERS: ADMIT Family Medicine; ATTEND Family Medicine
DX: J10.1 Influenza due to other identified influenza virus with other respiratory manifestations (principal); I69.354 Hemiplegia and hemiparesis following cerebral infarction affecting left non-dominant side; E11.9 Type 2 diabetes mellitus without complications; E78.00 Pure hypercholesterolemia, unspecified; I10 Essential (primary) hypertension; Z79.02 Long term (current) use of antithrombotics/antiplatelets; Z79.84 Long term (current) use of oral hypoglycemic drugs; Z79.899 Other long term (current) drug therapy; E78.5 Hyperlipidemia, unspecified; I69.391 Dysphagia following cerebral infarction